=== PATIENT | male | born 1960 | race Hispanic/Latino ===

== ENCOUNTER → 2019-04-11 | Outpatient (CLI) | payer BC, OTHER | END | disposition home or self-care (01) | LOC: SHCH 14:44 | PROVIDERS: ATTEND Internal Medicine Cardiovascular Disease | DX: I35.8 Other nonrheumatic aortic valve disorders (principal); I25.10 Atherosclerotic heart disease of native coronary artery without angina pectoris; I11.9 Hypertensive heart disease without heart failure | CPT/HCPCS: 93306 ==

== ENCOUNTER → 2021-10-29 | Outpatient (CLI) | payer OTHER | END | disposition home or self-care (01) | LOC: SHCH 08:29 | PROVIDERS: ATTEND Internal Medicine Cardiovascular Disease | DX: I08.0 Rheumatic disorders of both mitral and aortic valves (principal); I13.10 Hypertensive heart and chronic kidney disease without heart failure, with stage 1 through stage 4 chronic kidney disease, or unspecified chronic kidney disease; E11.22 Type 2 diabetes mellitus with diabetic chronic kidney disease; N18.9 Chronic kidney disease, unspecified; I20.9 Angina pectoris, unspecified; I70.293 Other atherosclerosis of native arteries of extremities, bilateral legs; E78.5 Hyperlipidemia, unspecified; E66.9 Obesity, unspecified; Z95.1 Presence of aortocoronary bypass graft | CPT/HCPCS: 93306; 93925 ==

== ENCOUNTER → 2021-12-12 | Outpatient (CLI) | payer OTHER ==
[~2021-12-12] VITALS: Ht 162.6 cm; Wt 88.0 kg
[~2021-12-12] MED LIST: REGADENOSON 0.4 MG/5 ML PF SYG IVP SCH
== END ==
LOC: SHCH 08:53
PROVIDERS: ATTEND Internal Medicine Cardiovascular Disease
DX: I25.10 Atherosclerotic heart disease of native coronary artery without angina pectoris (principal)
CPT/HCPCS: 78452; 93017; 96374; A9500 ×2; J2785

== ENCOUNTER → 2023-12-02 | Outpatient (CLI) | payer OTHER | END | disposition home or self-care (01) | LOC: SHCH 07:51 | PROVIDERS: ATTEND Internal Medicine Cardiovascular Disease | DX: I08.8 Other rheumatic multiple valve diseases (principal); I70.203 Unspecified atherosclerosis of native arteries of extremities, bilateral legs; R06.00 Dyspnea, unspecified; I71.40 Abdominal aortic aneurysm, without rupture, unspecified; R07.9 Chest pain, unspecified | CPT/HCPCS: 93306; 93925; 93978 ==

== ENCOUNTER → 2023-12-09 | Outpatient (CLI) | payer OTHER ==
[2023-12-09 17:03] LABS: ALBUMIN 3.4 g/dL (3.5-5.0); BILIRUBIN,TOTAL 0.3 mg/dL (0.2-1.0); CREATININE 2.4 mg/dL (0.5-1.3); POTASSIUM 4.7 mmol/L (3.5-5.1); TOTAL PROTEIN, SERUM 7.3 g/dL (6.0-8.3)
== END | disposition home or self-care (01) ==
LOC: LAB 13:11
PROVIDERS: ATTEND Internal Medicine Cardiovascular Disease
DX: I50.43 Acute on chronic combined systolic (congestive) and diastolic (congestive) heart failure (principal); I25.10 Atherosclerotic heart disease of native coronary artery without angina pectoris
CPT/HCPCS: 36415; 80053; 83880

== ENCOUNTER → 2023-12-21 | Outpatient (CLI) | payer OTHER ==
[2023-12-21] MEDS: REGADENOSON 0.4 MG/5 ML PF SYG IVP ONE (15:15)
== END | disposition home or self-care (01) ==
LOC: SHCH 08:41
PROVIDERS: ATTEND Internal Medicine Cardiovascular Disease
DX: I44.7 Left bundle-branch block, unspecified (principal); I25.10 Atherosclerotic heart disease of native coronary artery without angina pectoris
CPT/HCPCS: 78452; 96374; 93017; J2785; A9500 ×2

== ENCOUNTER 2024-06-28 05:46 | Day surgery (SDC) | payer OTHER ==
[2024-06-26 09:39] VITALS: BP 133/69; PULSE 63; RESP 17; TEMP 97.8
[2024-06-26 09:41] LABS: BASOPHILS # (AUTO) 0.06 K/uL (0.00-0.20); BASOPHILS % (AUTO) 1.2 % (0.0-5.0); EOSINOPHILS # (AUTO) 0.21 K/uL (0.00-0.70); HEMATOCRIT 38.2 % (42-54); IMMATURE GRANULOCYTE ABSOLUTE 0.02 K/uL (0-1); LYMPHOCYTES % (AUTO) 19.8 % (21.0-51.0); MEAN CORPUSCULAR HEMOGLOBIN 31.5 pg (27.0-33.0); MEAN CORPUSCULAR HGB CONC 31.4 g/dL (32.0-36.0); MEAN CORPUSCULAR VOLUME 100.3 fL (79-99); MONOCYTES # (AUTO) 0.8 K/uL (0.1-1.0); MONOCYTES % (AUTO) 14.6 % (3.0-13.0); NEUTROPHILS # (AUTO) 3.1 K/uL (1.8-7.7); PLATELET COUNT (AUTO) 119 K/uL (130-400); RED BLOOD CELL COUNT(AUTO) 3.81 MIL/uL (4.50-6.20); RED CELL DISTRIBUTION WIDTH 14.4 % (11.0-15.5); WHITE BLOOD COUNT (AUTO) 5.2 K/uL (4.8-10.8)
[2024-06-26 09:51] LABS: CREATININE 2.7 mg/dL (0.5-1.3)
--- NOTE | 2024-06-26 09:55 | NUR ---
MARIYA RECEIVED CALL FROM LAB ON POTASSIUM OF 6.0. BUNNY RESTREPO NOTIFIED AND RECEIVED ORDERS TO REPEAT POTASSIUM ONLY. BUNNY NOTIFIED WITH NEW POTASSIUM OF 5.4. OK TO SEND PT HOME AND REPEAT POTASSIUM AM OF PROCEDURE.
[2024-06-26 10:05] LABS: INR 0.98 (0.85-1.15); PROTHROMBIN TIME 10.6 SEC (9.6-11.6)
[2024-06-26 10:06] LABS: PARTIAL THROMBOPLASTIN TIME 27.3 SEC (26.3-35.5)
--- NOTE | 2024-06-26 10:33 | EKG ---
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
--- NOTE | 2024-06-27 15:14 | NUR ---
report reported bun and creat to dr reed. ok to proceed.
[~2024-06-28] VITALS: Ht 165.1 cm; Wt 89.0 kg
[2024-06-28] VITALS (10 sets, daily range): BP systolic 120–140; BP diastolic 41–70; PULSE 60–72; RESP 16–18; TEMP 97.3–98
[~2024-06-28 05:46] MED LIST changes: +AMLO-257 PO; +ASCO100031 PO; +ASPI-1197 PO; +CETI10TA57 PO; +CLOP75TA32 PO; +CYAN-35 PO; +DAPA10TA PO; +FLUT15.845 NS; +FOLI0.4T6 PO; +GLIP5TAB15 PO; +ISOS30TA92 PO; +METO-408 PO; +NITR0.4T50 SL; +PANT40TA54 PO; -REGADENOSON 0.4 MG/5 ML PF SYG IVP SCH; +ROSU10TA72 PO; +VALS80TA30 PO
[2024-06-28] MEDS ORDERED: 0.9%NACL 1000ML 1,000 ML IV ONE (06:59)
[2024-06-28] MEDS ORDERED: IOHEXOL-350 75 ML VIAL IV ONE (07:18)
[2024-06-28] MEDS ORDERED: LIDOCAINE HCL 1% MDV 50ML VIAL ONE (07:18)
[2024-06-28] MEDS ORDERED: ceFAZolin SODIUM 1 GM VIAL ONE (07:18)
[2024-06-28] MEDS ORDERED: BUPIvacaine/PF 0.25% 30ML VIAL IJ ONE (07:18)
[2024-06-28] MEDS ORDERED: MIDAZOLAM HCL 1 MG/ML 2ML VIAL ONE ×3 (07:43→10:47)
[2024-06-28] MEDS ORDERED: MEPERIDINE-PF 25 MG/ML SYG ONE ×3 (07:43→10:47)
[2024-06-28] MEDS ORDERED: BACITRACIN 1 EACH PACKET TP ONE (12:21)
[2024-06-28] MEDS ORDERED: TRAM50TA4 PO (12:53)
[2024-06-28] MEDS ORDERED: acetaMINOPHEN 500 MG TABLET PO PRN (13:00)
--- NOTE | 2024-06-28 13:32 | NUR ---
PT HAS SLING TO LEFT ARM, TOLERATING WELL. EDUCATED NOT TO ELEVATE LEFT ARM ABOVE SHOULDER FOR 6 WEEKS
--- NOTE | 2024-06-28 13:37 | NUR ---
DRESSING GAUZE AND OPSITE GIVEN TO PT AND , EDUCATED ON PROPER WAY TO DO DRESSING, VERBALIZED CORRECT ASEPTIC TECHNIQUE.
[2024-06-28 13:48] LABS: CREATININE 2.4 mg/dL (0.5-1.3); POTASSIUM 5.7 mmol/L (3.5-5.1)
[2024-06-28] MEDS: acetaMINOPHEN WITH coDEINE 1 TAB TAB PO PRN (15:05)
--- NOTE | 2024-06-28 15:06 | NUR ---
C/O ICD INSERTION SITE PAIN, 7/10 PAIN SCALE
--- NOTE | 2024-06-28 15:53 | HMCIMG ---
CHEST 1VW HISTORY: Pacemaker placement COMPARISON: 07/19/2010 FINDINGS: A frontal projection of the chest was obtained. Prominent interstitial markings are seen with possible superimposed infiltrates. Poststernotomy changes are seen. The heart is enlarged. Degenerative changes of the thoracolumbar spine are present. Pacemaker is seen entering from the left. No pneumothorax is. No evidence of aortic calcification is seen. IMPRESSION: 1. Prominent interstitial markings are seen with possible superimposed infiltrates.
--- NOTE | 2024-06-28 16:20 | NUR ---
NOTIFIED DR. VAZQUEZ OF CXR POST PACEMAKER IMPLANTATION, ASKED IF THERE WAS ANY HEMATOMA AND INFORMED THAT NO HEMATOMA WAS SEEN. STATES PT MAY GO HOME. ALSO INFORMED OF K 5.7 AND CREAT 2.4, NO NEW ORDERS AND STATES PT MAY GO HOME.
--- NOTE | 2024-06-28 16:38 | NUR ---
PACEMAKER INSERTION SITE SHOWS NO HEMATOMA AND NO BLEEDING. PT DENIES HAVING ANYMORE PAIN S/P TYLENOL 3 GIVEN.
== END 2024-06-28 16:45 | disposition home or self-care (01) ==
LOC: DAH 05:46
PROVIDERS: ATTEND Internal Medicine Cardiovascular Disease
DX: I25.5 Ischemic cardiomyopathy (principal); I13.0 Hypertensive heart and chronic kidney disease with heart failure and stage 1 through stage 4 chronic kidney disease, or unspecified chronic kidney disease; I50.22 Chronic systolic (congestive) heart failure; I44.7 Left bundle-branch block, unspecified; E11.22 Type 2 diabetes mellitus with diabetic chronic kidney disease; N18.4 Chronic kidney disease, stage 4 (severe); I25.10 Atherosclerotic heart disease of native coronary artery without angina pectoris; E11.40 Type 2 diabetes mellitus with diabetic neuropathy, unspecified; E78.5 Hyperlipidemia, unspecified; Z95.0 Presence of cardiac pacemaker; Z79.82 Long term (current) use of aspirin; Z79.899 Other long term (current) drug therapy
CPT/HCPCS: 84132 ×2; 80048 ×2; 85025; 85610; 85730; 36415 ×2; 93005; 33249; 33225; 82948; 71045; C1769 ×9; C1882; C1900; C1896; C1895; J0690; J7030; J0665; J2250 ×3; J2175 ×3; J3490; Q9967; A4215; A4222; A4221; A4663; A4216; A4606; A4223 ×3; 99156; 99157